=== PATIENT | female | born 1985 | race African-American/Black ===

== ENCOUNTER 2017-11-03 15:07 | Emergency (ER) | payer OTHER ==
[~2017-11-03] VITALS: Ht 152.4 cm; Wt 92.5 kg
[2017-11-03 16:16] VITALS: BP 137/90
== END 2017-11-03 16:18 | disposition home or self-care (01) ==
LOC: ER 15:07
DX: T82.848A Pain due to vascular prosthetic devices, implants and grafts, initial encounter (principal); G89.18 Other acute postprocedural pain; I12.9 Hypertensive chronic kidney disease with stage 1 through stage 4 chronic kidney disease, or unspecified chronic kidney disease; N18.9 Chronic kidney disease, unspecified